=== PATIENT | female | born 1990 | race Caucasian/White ===

== ENCOUNTER 2016-06-23 18:51 | Emergency (ER) | payer OTHER ==
[~2016-06-23] VITALS: Ht 154.9 cm; Wt 120.4 kg
[2016-06-23 19:43] VITALS: BP 139/91
[2016-06-23] MEDS ORDERED: LORazepam 1 MG TABLET PO ONE (19:45)
== END 2016-06-23 20:40 | disposition home or self-care (01) ==
LOC: EMS 18:52
DX: F41.9 Anxiety disorder, unspecified (principal); N64.4 Mastodynia; R07.9 Chest pain, unspecified
CPT/HCPCS: 93005; 99284

== ENCOUNTER 2016-09-26 22:48 | Emergency (ER) | payer OTHER ==
[~2016-09-26] VITALS: Ht 154.9 cm; Wt 122.7 kg
[2016-09-26 23:51] LABS: BASOPHILS # (AUTO) 0.05 K/uL (0.00-0.20); BASOPHILS % (AUTO) 0.4 % (0.0-2.0); EOSINOPHILS # (AUTO) 0.28 K/uL (0.00-0.70); EOSINOPHILS % (AUTO) 2.63 % (1.0-6.0); HEMATOCRIT 40.5 % (36-46); HEMOGLOBIN 13.4 g/dL (12.0-16.0); LYMPHOCYTES # (AUTO) 4.3 K/uL (1.0-4.8); LYMPHOCYTES % (AUTO) 40.8 % (22.0-44.0); MEAN CORPUSCULAR HEMOGLOBIN 29.1 pg (26.0-34.0); MEAN CORPUSCULAR HGB CONC 33.2 G/dL (31.0-37.0); MEAN CORPUSCULAR VOLUME 88 fL (80-100); MONOCYTES # (AUTO) 0.8 K/uL (0.1-1.0); MONOCYTES % (AUTO) 7.4 % (2.0-9.0); NEUTROPHILS # (AUTO) 5.2 K/uL (1.8-7.7); NEUTROPHILS % (AUTO) 48.7 % (40.0-70.0); PLATELET COUNT (AUTO) 289 K/uL (150-450); RED BLOOD CELL COUNT(AUTO) 4.61 MIL/uL (4.00-5.20); RED CELL DISTRIBUTION WIDTH 12.6 % (11.5-14.5); WHITE BLOOD COUNT (AUTO) 10.6 K/uL (4.5-11.0)
[2016-09-26 23:52] LABS: ANION GAP 11 mmol/L (8-16); CARBON DIOXIDE 26 mmol/L (22-29); CHLORIDE 103 mmol/L (98-107); CREATININE 0.77 mg/dL (0.60-1.30); GLOMERULAR FILTR. RATE CALC > 60 mL/min (>60); POTASSIUM 3.5 mmol/L (3.5-5.1); SODIUM SERUM 140 mmol/L (136-145); UREA NITROGEN, BLOOD 14 mg/dL (7-18)
[2016-09-26 23:58] LABS: ALANINE AMINOTRANSFERASE 27 U/L (12-78); ALBUMIN 3.6 g/dL (3.4-5.0); ASPARTATE AMINOTRANSFERASE 15 U/L (15-37); BILIRUBIN,TOTAL 0.3 mg/dL (0.1-1.0); TOTAL PROTEIN, SERUM 7.2 g/dL (6.4-8.2)
[2016-09-27 02:03] VITALS: BP 122/57
== END 2016-09-27 02:05 | disposition home or self-care (01) ==
LOC: EMS 23:01
DX: M94.0 Chondrocostal junction syndrome [Tietze] (principal); R05 Cough; F12.90 Cannabis use, unspecified, uncomplicated
CPT/HCPCS: 85379; 93005; 99285

== ENCOUNTER 2017-09-10 08:16 | Emergency (ER) | payer OTHER ==
[~2017-09-10] VITALS: Ht 157.5 cm; Wt 127.3 kg
[2017-09-10] MEDS ORDERED: LORazepam 2 MG TABLET PO ONE (08:45)
[2017-09-10 10:03] VITALS: BP 141/93
== END 2017-09-10 10:08 | disposition home or self-care (01) ==
LOC: EMS 08:28
DX: F41.9 Anxiety disorder, unspecified (principal); F12.90 Cannabis use, unspecified, uncomplicated
CPT/HCPCS: 99284

== ENCOUNTER 2018-05-23 22:25 | Emergency (ER) | payer OTHER ==
[~2018-05-23] VITALS: Ht 154.9 cm; Wt 135.4 kg
[2018-05-23] MEDS ORDERED: PARO20TA24 PO (22:44)
[2018-05-24] MEDS ORDERED: KETOROLAC TROMETHAMINE 60 MG/2 ML VIAL IM ONE
[2018-05-24 00:40] VITALS: BP 152/98
== END 2018-05-24 01:09 | disposition home or self-care (01) ==
LOC: EMS 22:28
DX: S16.1XXA Strain of muscle, fascia and tendon at neck level, initial encounter (principal); M54.6 Pain in thoracic spine; F41.9 Anxiety disorder, unspecified; F12.90 Cannabis use, unspecified, uncomplicated; V49.9XXA Car occupant (driver) (passenger) injured in unspecified traffic accident, initial encounter; Y93.89 Activity, other specified; Y92.89 Other specified places as the place of occurrence of the external cause; Y99.8 Other external cause status
CPT/HCPCS: 72040; 96372; 99283; J1885